=== PATIENT | female | born 1985 | race Caucasian/White ===

== ENCOUNTER 2019-12-14 15:32 | Outpatient (CLI) | payer MEDICAID, SELFPAY ==
--- NOTE | 2019-12-14 | XR_ITS ---
WS: [id number] LEFT ELBOW: 3 VIEW(S) TECHNIQUE: AP, oblique and lateral. HISTORY: RIGHT ELBOW PAIN COMPARISON: None available. No definite fracture is identified and there is no joint effusion. There is very slight thickening of the trabecula near the radial head. Cannot confirm fracture but if pain continues recommend repeat r adiographs in 5-7 days. No soft tissue abnormality. XR/XR elbow LT min 3V* [id number] IMPRESSION: 1. No definite fracture identified. 2. Minimal thickening of the trabecula at the radial head. Indeterminate for f racture. 3. No joint effusion.
== END 2019-12-14 15:33 | disposition home or self-care (01) ==
LOC: RADOUTREAD 15:37
PROVIDERS: Family Provider Family Medicine; PCP Family Medicine; Visit Provider Family Medicine
DX: Z76.89 Persons encountering health services in other specified circumstances (principal)

== ENCOUNTER → 2020-08-29 12:35 | Outpatient (BNVA) | payer OTHER, SELFPAY | PROVIDERS: Family Provider Family Medicine; PCP Family Medicine; Visit Provider Nurse Practitioner Family | DX: Z11.59 Encounter for screening for other viral diseases (principal); Z20.828 Contact with and (suspected) exposure to other viral communicable diseases | CPT/HCPCS: 87635 ==

== ENCOUNTER → 2024-10-27 13:08 | Outpatient (BNVA) | payer OTHER, SELFPAY | PROVIDERS: PCP Family Medicine; Visit Provider Nurse Practitioner Women's Health | DX: Z12.4 Encounter for screening for malignant neoplasm of cervix (principal) | CPT/HCPCS: 87624 ==